=== PATIENT | female | born 1955 | race African-American/Black ===

== ENCOUNTER 2022-09-16 08:44 | Emergency (ER) | payer MEDICARE ==
[~2022-09-16] VITALS: Ht 152.4 cm; Wt 72.0 kg
[2022-09-16 09:03] VITALS: O2SAT 99
[2022-09-16] MEDS ORDERED: KETOROLAC 60MG/2ML VIAL IM STA (09:17)
[2022-09-16] MEDS ORDERED: MAGNESIUM/ALUMINUM HYDROXIDE/SIMETHICONE 30ML UDC PO STA (09:17)
[2022-09-16] MEDS ORDERED: FAMOTIDINE 20MG TABLET PO ONE (09:30)
[2022-09-16 09:37] LABS: BASOPHILS % 0.8 % (0.0-2.0); EOSINOPHILS % 2.2 % (0.0-5.0); HEMATOCRIT. 37.1 % (36.0-48.0); HEMOGLOBIN. 12.2 g/dL (12.0-16.0); LYMPHOCYTES % 31.1 % (20.0-50.0); MEAN CORPUSCULAR HEMOGLOBIN 27.9 pg (28.0-32.0); MEAN CORPUSCULAR VOLUME 85.1 fL (81.0-99.0); MEAN PLATELET VOLUME 10.4 fl (7.4-10.4); MONOCYTES % 7.7 % (2.0-8.0); NEUTROPHILS % 58.2 % (40.0-76.0); PLATELET 200 x1000/uL (130-400); RED BLOOD CELL COUNT 4.36 mill/uL (4.2-5.4); RED CELL DISTRIBUTION WIDTH 14.5 % (11.6-14.6)
[2022-09-16 09:42] LABS: CHLORIDE 109 mEq/L (98-107)
[2022-09-16 09:45] LABS: PROTHROMBIN TIME 10.7 sec (9.6-11.0)
[2022-09-16 13:40] LABS: CLARITY URINE CLOUDY (CLEAR); COLOR URINE YELLOW (YELLOW); KETONES URINE NEGATIVE (NEGATIVE); LEUKOCYTE ESTERASE URINE NEGATIVE (NEGATIVE); NITRITE URINE NEGATIVE (NEGATIVE); OCCULT BLOOD URINE NEGATIVE (NEGATIVE); PH URINE 7.5 (4.5-8.0); PROTEIN URINE NEGATIVE (NEGATIVE); SPECIFIC GRAVITY URINE 1.018 (1.005-1.030)
[2022-09-16] MEDS ORDERED: PROT40 MT (14:26)
[2022-09-16] MEDS ORDERED: NITR-87 MT (14:26)
[2022-09-16 14:36] VITALS: BP 147/79; PULSE 79; RESP 20; TEMP 98
== END 2022-09-16 14:42 | disposition home or self-care (01) ==
LOC: ER 08:44
DX: R10.11 Right upper quadrant pain (principal)
CPT/HCPCS: 99285; 76705; 80053; 81003; 83690; 85025; 85610; 84484; 36415; 96372; J1885